=== PATIENT | male | born 1990 ===

== ENCOUNTER 2021-06-15 17:19 | Inpatient (IN) | payer OTHER, BC ==
[2021-06-15] MEDS ORDERED: LORazepam 2 MG/ML SDV IVPUSH ONE ×2 (18:05→20:49)
[2021-06-15] MEDS ORDERED: Sodium Chloride 0.9% 10 ML Syringe FLUSH PRN (18:05)
[2021-06-15] MEDS ORDERED: Sodium Chloride 0.9% 2.5 ML Syringe FLUSH PRN (18:05)
[2021-06-15 19:47] LABS: BLOOD UREA NITROGEN,BUN 10 mg/dL (7.0-18.0); CARBON DIOXIDE,CO2 23.8 mmol/L (21.0-32.0); CHLORIDE,CL 98 mmol/L (98-107); GLUCOSE RANDOM 88 mg/dL (74-106); POTASSIUM,K 3.9 mmol/L (3.5-5.1); SODIUM,NA 136 mmol/L (136-148)
[2021-06-15] MEDS ORDERED: chlordiazePOXIDE 10 MG Cap PO ONE (20:49)
[2021-06-15] MEDS ORDERED: Sodium Chloride 0.9% 1,000 ML IV ONE ×2 (20:52→21:02)
[2021-06-15] MEDS ORDERED: Ondansetron 4 MG/2 ML SDV IVPUSH PRN (23:24)
[2021-06-15] MEDS ORDERED: Acetaminophen 500 MG Tab PO PRN (23:24)
[2021-06-15] MEDS: LORazepam 2 MG/ML SDV IVPUSH PRN (23:42)
[2021-06-15] MEDS: Lactated Ringers 1,000 ML IV SCH (23:42)
[2021-06-16] MEDS: Thiamine 100 MG Tab PO SCH ×2 (01:40→09:42)
[2021-06-16] MEDS: LORazepam 2 MG/ML SDV IVPUSH PRN ×3 (01:50→21:28)
[2021-06-16 06:19] LABS: BLOOD UREA NITROGEN,BUN 7 mg/dL (7.0-18.0); CARBON DIOXIDE,CO2 25.7 mmol/L (21.0-32.0); CHLORIDE,CL 103 mmol/L (98-107); GLUCOSE RANDOM 80 mg/dL (74-106); POTASSIUM,K 3.9 mmol/L (3.5-5.1); SODIUM,NA 141 mmol/L (136-148)
[2021-06-16] MEDS: Pantoprazole 40 MG Tab.CR PO SCH (06:40)
[2021-06-16] MEDS ORDERED: Thiamine 100 MG Tab PO SCH (09:00)
[2021-06-16] MEDS ORDERED: Pantoprazole 40 MG in Sodium Chloride 0.9% 10 ML IVPUSH SCH (09:00)
[2021-06-16] MEDS ORDERED: chlordiazePOXIDE 10 MG Cap PO SCH (09:00)
[2021-06-16] MEDS: Enoxaparin 40 MG/0.4 ML Syringe SUBCUT SCH ×2 (09:07→09:42)
[2021-06-16] MEDS: Folic Acid 1 MG Tab PO SCH (09:42)
[2021-06-16] MEDS: Lactated Ringers 1,000 ML IV SCH ×2 (15:32→23:20)
[2021-06-17 06:10] LABS: BLOOD UREA NITROGEN,BUN 7 mg/dL (7.0-18.0); CARBON DIOXIDE,CO2 27.3 mmol/L (21.0-32.0); CHLORIDE,CL 103 mmol/L (98-107); GLUCOSE RANDOM 99 mg/dL (74-106); POTASSIUM,K 4.1 mmol/L (3.5-5.1); SODIUM,NA 140 mmol/L (136-148)
[2021-06-17] MEDS: Pantoprazole 40 MG Tab.CR PO SCH (06:32)
[2021-06-17] MEDS: Lactated Ringers 1,000 ML IV SCH (07:18)
[2021-06-17] MEDS: Thiamine 100 MG Tab PO SCH (08:57)
[2021-06-17] MEDS: Folic Acid 1 MG Tab PO SCH (08:57)
[2021-06-17] MEDS: Enoxaparin 40 MG/0.4 ML Syringe SUBCUT SCH (09:07)
[2021-06-17] MEDS ORDERED: Sodium Chloride 0.9% 2.5 ML Syringe FLUSH PRN (09:55)
[2021-06-17] MEDS ORDERED: Acetaminophen 325 MG Tab PO PRN (09:55)
[2021-06-17] MEDS ORDERED: Sodium Chloride 0.9% 10 ML Syringe FLUSH PRN (09:55)
[2021-06-18 06:41] LABS: BLOOD UREA NITROGEN,BUN 10 mg/dL (7.0-18.0); CARBON DIOXIDE,CO2 27.1 mmol/L (21.0-32.0); CHLORIDE,CL 102 mmol/L (98-107); GLUCOSE RANDOM 92 mg/dL (74-106); POTASSIUM,K 3.6 mmol/L (3.5-5.1); SODIUM,NA 139 mmol/L (136-148)
[2021-06-18] MEDS: Pantoprazole 40 MG Tab.CR PO SCH (06:44)
[2021-06-18] MEDS: Enoxaparin 40 MG/0.4 ML Syringe SUBCUT SCH (09:20)
[2021-06-18] MEDS: Thiamine 100 MG Tab PO SCH (09:21)
[2021-06-18] MEDS: Folic Acid 1 MG Tab PO SCH (09:21)
[2021-06-19] MEDS ORDERED: Pantoprazole 40 MG Tab.CR ONE (08:23)
[2021-06-19] MEDS: Pantoprazole 40 MG Tab.CR PO SCH (08:38)
[2021-06-19] MEDS: Thiamine 100 MG Tab PO SCH (08:38)
[2021-06-19] MEDS: Folic Acid 1 MG Tab PO SCH (08:38)
[2021-06-19] MEDS: Enoxaparin 40 MG/0.4 ML Syringe SUBCUT SCH (08:39)
== END 2021-06-19 11:15 | disposition home or self-care (01) | DRG 897 ==
LOC: MW.ED 17:19 → MW.ICU 20:47 → MW.MS 06-17 12:52
PROVIDERS: ADMIT Student in an Organized Health Care Education/Training Program; ATTEND Student in an Organized Health Care Education/Training Program
DX: F10.239 Alcohol dependence with withdrawal, unspecified (principal); E80.6 Other disorders of bilirubin metabolism; R74.01 Elevation of levels of liver transaminase levels; R56.9 Unspecified convulsions; Z20.822 Contact with and (suspected) exposure to COVID-19
CPT/HCPCS: 36415; 70450; 70450-26; 80053; 80307; 83605; 83735; 84100; 84146; 85025; 85027; 85610; 93005; 93010; 96374; 99284; 99285-25; A9270-GY; J1650; J2060; J7030; J7120; U0002